=== PATIENT | male | born 1985 | race African-American/Black ===

== ENCOUNTER 2023-08-02 18:10 | Emergency (ER) | payer OTHER ==
[2023-08-02 18:27] VITALS: BP 105/62; PULSE 54; RESP 16; TEMP 98.4; BMI 29.7
[2023-08-02] MEDS ORDERED: ONDANSETRON 4 MG/2 ML VIAL IVPUSH ONE (20:10)
[2023-08-02] MEDS ORDERED: SODIUM CHLORIDE 0.9% 1000 ML INFUS.BAG IV ONE ×2 (20:10→23:31)
[2023-08-02] MEDS ORDERED: ONDANSETRON 4 MG/2 ML VIAL ONE (20:31)
[2023-08-02 21:01] LABS: HEMATOCRIT 44.7 % (35.4-49); HEMOGLOBIN 14.4 G/dL (11.7-16.9); MCHC 32.3 g/dl (32.0-35.9); MEAN CELL VOLUME 89.7 fl (80-96); MEAN PLT VOLUME 8.3 fl (7.5-11.1); PLATELET COUNT 234.2 10^3/uL (134-434); RBC 4.98 10^6/uL (4.00-5.60); RDW 15.1 % (11.9-15.9); WHITE BLOOD COUNT 10.5 10^3/uL (4.0-10.8)
[2023-08-02 21:18] LABS: ALBUMIN 5.2 g/dl (3.4-5.0); BILIRUBIN,TOTAL 0.7 mg/dl (0.2-1); CALCIUM 10.1 mg/dl (8.5-10.1); CREATININE 1.1 mg/dl (0.6-1.3); POTASSIUM 3.7 mmol/L (3.5-5.1); SGOT/AST 28.7 U/L (15-37); SGPT/ALT 35.9 U/L (7-52); TOT PROT 8.1 g/dl (6.4-8.2)
[2023-08-02 22:37] LABS: PLATELET ESTIMATE ADEQUATE
[2023-08-02 22:56] LABS: LACTIC ACID 3.9 mmol/L (0.4-2.0)
[2023-08-02] MEDS ORDERED: METOCLOPRAMIDE HCL INJECTION 10 MG/2 ML VIAL IVPB ONE (23:00)
[2023-08-02] MEDS ORDERED: METOCLOPRAMIDE HCL INJECTION 10 MG/2 ML VIAL ONE (23:15)
== END 2023-08-03 00:56 | disposition home or self-care (01) ==
LOC: FER 18:10
PROC: 3E033NZ Introduction of Analgesics, Hypnotics, Sedatives into Peripheral Vein, Percutaneous Approach (ICD-10-PCS; principal; 2023-08-02)
PROC: 3E033GC Introduction of Other Therapeutic Substance into Peripheral Vein, Percutaneous Approach (ICD-10-PCS; 2023-08-02)
DX: R11.2 Nausea with vomiting, unspecified (principal); K52.9 Noninfective gastroenteritis and colitis, unspecified
CPT/HCPCS: 0241U-QW; 36415; 74177-TC; 80053; 83605; 83690; 85027; 99285-25; Q9967

== ENCOUNTER 2024-11-23 08:21 | Emergency (ER) | payer SELFPAY ==
[2024-11-23 08:28] VITALS: BP 107/61; PULSE 72; RESP 18; TEMP 99; BMI 26.6
[2024-11-23] MEDS ORDERED: KETOROLAC TROMETHAMINE 15 MG/ML VIAL ONE (08:42)
[2024-11-23] MEDS: KETOROLAC TROMETHAMINE 15 MG/ML VIAL IM ONE (08:46)
[2024-11-23] MEDS ORDERED: ACETAMINOPHEN 500 MG TABLET (FP) ONE (09:09)
[2024-11-23] MEDS: ACETAMINOPHEN 500 MG TABLET (FP) PO ONE (09:11)
[2024-11-23] MEDS: diazePAM 5 MG TABLET PO ONE (09:12)
== END 2024-11-23 10:03 | disposition home or self-care (01) ==
LOC: FER 08:21
PROC: 3E0133Z Introduction of Anti-inflammatory into Subcutaneous Tissue, Percutaneous Approach (ICD-10-PCS; principal; 2024-11-23)
DX: M62.838 Other muscle spasm (principal); M54.2 Cervicalgia
CPT/HCPCS: 99284-25